=== PATIENT | female | born 1955 | race American Indian/Alaskan Native ===

== ENCOUNTER 2017-05-22 06:24 | Day surgery (SDC) | payer OTHER ==
[2017-05-22] MEDS ORDERED: WATER FOR IRRIG STERILE IR ONE ×2 (07:23→07:24)
[2017-05-22] MEDS ORDERED: WATER FOR IRRIG STERILE ONE (07:24)
--- NOTE | 2017-05-22 07:31 | Anesthesia Consultation ---
Anesthesia Consult and Med Hx Date of service: 05/22/17 - Airway Anesthetic Teeth Evaluation: Bridges ROM Head & Neck: Adequate Mental/Hyoid Distance: Adequate Mallampati Class: Class II Intubation Access Assessment: Probably Good - Pulmonary Exam CTA: Yes - Cardiac Exam Cardiac Exam: RRR - Pre-Operative Health Status ASA Pre-Surgery Classification: ASA2 Proposed Anesthetic Plan: MAC - Pulmonary Hx Smoking: No Hx Asthma: No - Cardiovascular System Hx Hypertension: No Hx Heart Attack/AMI: No - Central Nervous System Hx Seizures: No CVA: No - Gastrointestinal Hx Gastroesophageal Reflux Disease: Yes (well controlled with meds) - Other Systems Hx Obesity: Yes - Additional Comments Anesthesia Medical History Comments: NAC
--- NOTE | 2017-05-22 07:32 | Anesthesia Day of Surgery ---
Anesthesia Day of Surgery - Day of Surgery Patient Examined: Yes Patient H&P Reviewed: Yes Patient is NPO: Yes
[2017-05-22] MEDS ORDERED: DIPRIVAN 10 MG/ML IV ONE ×3 (07:35→08:47)
[2017-05-22] MEDS ORDERED: NACL 0.9% 1000 ML 1,000 ML IV SCH (08:00)
--- NOTE | 2017-05-22 08:48 | Short Stay Summary ---
Short Stay Documentation - Allergies and Medications Current Medications: Allergies codeine Adverse Reaction (Verified 09/09/14 19:17) Unknown Home Medications Medication Instructions Recorded Confirmed Last Taken Type Omeprazole 30 mg PO DAILY 05/22/17 05/22/17 05/21/17 History Active Medications Sodium Chloride (Nacl 0.9% 1000 Ml) 1,000 mls @ 50 mls/hr IV DIRECT LIZ Last Admin: 05/22/17 07:30 Dose: 50 mls/hr - Brief post op/procedure progress note Date of procedure: 05/22/17 Pre-op diagnosis: 1. Epigastric pain 2. GERD 3. Colon cancer screening Post-op diagnosis: same (EGD: 1. GERD 2. gastritis Colonoscopy 1. Colon polyps 2. Internal hemorrhoids 3. Poor prep) Procedure: 1. EGD with biopsy 2. Colonoscopy with snare polypectomy and with Clipping Anesthesia: MAC Findings: as above Surgeon: FLORESITA CUTLER Estimated blood loss: none Pathology: list (1. Antrum 2. Cecal polyp 3. Ascending colon polyp 4. Sigmoid polyp) Specimen disposition: to lab Condition: stable - Disposition Condition at discharge: Stable Disposition: [id number] TO HOME OR SELFCARE Short Stay Discharge Plan Activity: no restrictions Weight Bearing Status: Full Weight Bearing Diet: regular Follow up with: PITA DING MD [Primary Care Provider] - 7 Days
[2017-05-22 09:27] VITALS: BP 168/92
== END 2017-05-22 06:25 | disposition home or self-care (01) ==
LOC: GIO 06:24
PROVIDERS: ATTEND Internal Medicine Gastroenterology
DX: Z09 Encounter for follow-up examination after completed treatment for conditions other than malignant neoplasm (principal); K21.9 Gastro-esophageal reflux disease without esophagitis; K29.50 Unspecified chronic gastritis without bleeding; D12.0 Benign neoplasm of cecum; D12.2 Benign neoplasm of ascending colon; D12.5 Benign neoplasm of sigmoid colon; K64.8 Other hemorrhoids; E66.9 Obesity, unspecified; Z68.33 Body mass index [BMI] 33.0-33.9, adult; Z87.19 Personal history of other diseases of the digestive system; Z88.5 Allergy status to narcotic agent; Z79.899 Other long term (current) drug therapy; Z80.0 Family history of malignant neoplasm of digestive organs
CPT/HCPCS: 43239; 45385; 88305; 88342; J2704; J7030